=== PATIENT | female | born 1975 | race Caucasian/White ===

== ENCOUNTER 2022-11-09 15:45 | Outpatient (RCR) | payer BC, SELFPAY ==
--- NOTE | 2022-10-06 09:08 | PTOPEVAL1 ---
Assessment and note entered by Lucrecia Montejo, PT, DPT Evaluation Information Assessment Status Evaluation Diagnosis shoulder and neck pain Onset chronic Subjective Information Pt states she has had neck, upper back, and shoulder pain for almost 10 years. She states she has pinched a nerve in her neck because of it. She states she feels like it is getting worse in the last few months. 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 Pt reports greater than 3 headache days a week. Reported Pain Level Pain Score 6: Self Report Assessment PT Clinical Summary Caty presents to therapy today for her initial evaluation with a diagnosis of strain of muscle in the scapular region. Today she demonstrates limitations in her active cervical motion in all directions, with lateral flexion being the most limited. She demonstrates active shoulder flexion and abduction to ~115 deg ea, bilaterally. She has notable decreased thoracic and cervical joint mobility as well as increased tissue density throughout her scapular/cervical regions L>R. She has poor, rounded posture with decreased ability to find spinal neutral. Skilled physical therapy services are indicated to improve shoulder and cervical ROM and strength, for pain management, to educate on body mechanics and work place set up, to minimize limitations, and to promote unlimited functional mobility. Plan of Care Interventions Electrical Stimulation,Hot Pack/Cold Pack,Manual Therapy,Neuro Re-education,Patient/Caregiver Educati,Therapeutic Activities,Therapeutic Exercise PT Services Indicated Yes Treatment Frequency and 2x/wk for 5 wks Duration These treatments will address the objective and functional deficits as defined above. The patient will be advanced safely and appropriately in order for the patient to progress towards his/her prior level of function. Additional exercises will be introduced and as well as a comprehensive home exercise program upon discharge, if needed, ?to ensure carryover of functional gains achieved in the clinic. This treatment plan has been reviewed and agreement upon by the patient.
--- NOTE | 2022-11-09 16:32 | PTOPPROG ---
Assessment and note entered by Lucrecia Montejo, PT, DPT Evaluation Information Assessment Status Progress Diagnosis shoulder and neck pain Onset chronic Subjective Information Pt states overall she is doing better. She states her shoulder still feels tight. She states she thinks if she keeps up with the exercises she will get there. She states her sleeping is still broken and is difficult d/t numbness. She states she was able to work more hours this week and last week. She states she still has tightness that moves from her shoulder up to the back of her next but this has decreased in intensity and frequency . She states her pain is a little bit higher this week and she has been working longer and decreased her exercises d/t a family emergancy. Assessment PT Clinical Summary Caty presents to therapy today for her progress report following 7 visits of skilled therapy to treat her neck and shoulder pain. Today she demonstrates improved active shoulder ROM in both flexion and abduction, from 115 deg, to 150 deg and 130 deg respectively. She demonstrates good shoulder strength and improving cervical ROM. She reports a decrease in headaches and sharp pains in her neck. She is progressing well towards her therapy goals. It was decided that she continue her HEP and follow up in one month if needed. If she does not call to come back in, in a month she will be discharged at that time. Plan of Care Interventions Electrical Stimulation,Hot Pack/Cold Pack,Manual Therapy,Neuro Re-education,Patient/Caregiver Educati,Therapeutic Activities,Therapeutic Exercise PT Services Indicated No Treatment Frequency and follow up in one month if needed Duration These treatments will address the objective and functional deficits as defined above. The patient will be advanced safely and appropriately in order for the patient to progress towards his/her prior level of function. Additional exercises will be introduced and as well as a comprehensive home exercise program upon discharge, if needed, ?to ensure carryover of functional gains achieved in the clinic. This treatment plan has been reviewed and agreement upon by the patient.
--- NOTE | 2022-12-12 12:45 | PTOPDC ---
Assessment and note entered by Lucrecia Montejo, PT, DPT Evaluation Information Assessment Status Discharge - Pt Not Present Diagnosis shoulder and neck pain Onset chronic Subjective Information Called and spoke with patient, she states she is doing well with her HEP and no longer needs to continue therapy. Assessment PT Clinical Summary Caty completed 8 visits of skilled therapy from 10/06/22 to 11/09/22 and has been performing her HEP on her own since. She will be discharged at this time. If she needs additional therapy at a later time she will need a new order.
== END 2022-12-12 13:14 | disposition home or self-care (01) ==
LOC: ANHGOSHPT 15:45
PROVIDERS: PCP Family Medicine; Visit Provider Family Medicine
DX: S29.012D Strain of muscle and tendon of back wall of thorax, subsequent encounter (principal)
CPT/HCPCS: 97110; 97112; 97140; 97161

== ENCOUNTER 2023-04-02 05:06 | Emergency (ER) | payer BC, SELFPAY ==
[2023-04-02 05:13] VITALS: BP 119/77; PULSE 99; RESP 18; TEMP 36.8; O2SAT 98
--- NOTE | 2023-04-02 05:26 | ED.GENADULT ---
HPI - General Adult General Chief complaint: Unspecified Stated complaint: woke up with a bat on my pillow Time Seen by Provider: 04/02/23 05:26 History of Present Illness HPI narrative: Patient presents here after she found a bat on her pillow, it was a baby that, she states that occasionally her cat will bring her things and she thinks that this is what happened. She denies any wounds anywhere. Related Data Home Medications Medication Instructions Recorded Confirmed loratadine 10 mg tablet (Claritin) 10 mg PO DAILY PRN Allergy Symptoms 10/25/22 10/25/22 Allergies Allergy/AdvReac Type Severity Reaction Status Date / Time 1. ASA 2. all NSAIDS Allergy Unknown Unknown Uncoded 10/25/22 13:33 Review of Systems Review of Systems: CONST: No fever. HEENT: No sore throat C/V: No chest pain RESP: No cough GI: No abdominal pain : No dysuria. M/S: No joint pain. SKIN: No rash. NEURO: [No headache or focal numbness or weakness] PSYCH: Anxious PMFSH Past Medical History Medical History Acute sialoadenitis Anxiety Dermographism Drug-induced anaphylaxis NSAID Vocal cord dysfunction Family History Family History Mother Family history of mental disorder Depression Sibling Family history of mental disorder Depression Family history of migraine headaches Asthma Father Hypertension Family history of cardiovascular disease Family history of arthritis Grandparent Family history of Alzheimer's disease Malignant neoplasm of prostate Family history of malignant neoplasm of urinary bladder Social History Social History Smoking packs per day: 1 Smoking cigarettes per day: 20.0 Years smoked: 8 Smoking pack-years: 8.00 Smoking status: Former smoker Tobacco type: cigarettes Second hand tobacco smoke exposure: No Smoking end date: 10/16/99 Alcohol intake: current Drinks per week: 1 Alcohol use details: Occasionally Substance use type: does not use Lack of Transportation: No Lack of Food: Never True Current Housing: I Have Housing Concerned About Future Housing: No Difficulty Paying Gas/Electric Bills: No Difficulty Paying for Meds: No Currently Unemployed: No Education: Bachelor's Degree Difficulty w/ Childcare or Family Care: No Living arrangements: with family Occupation/Education: occupation Gender identity (if verbalized by the patient): Female Spiritual care concerns: No Exam Narrative: EXAMINATION OF ORGAN SYSTEMS/BODY AREAS: Constitutional: Vital signs per nursing GENERAL:[No acute distress, non-toxic appearing.] HEAD: Normal with no signs of head trauma. EYES: EOMI, conjunctiva normal ENT: Hearing grossly intact LUNGS: Nonlabored breathing. HEART: [Regular rate and rhythm] EXT: Normal range of motion SKIN: [No rashes or lesions.] NEURO: [Alert and oriented x 3. No gross focal sensory or strength deficits.] PSYCH: Normal affect Course Vital Signs Vital signs: Vital Signs Temperature 98.2 F 04/02/23 05:13 Pulse Rate 99 04/02/23 05:13 Respiratory Rate 18 04/02/23 05:13 Blood Pressure 119/77 04/02/23 05:13 Pulse Oximetry 98 04/02/23 05:13 Oxygen Delivery Room Air 04/02/23 05:13 Temperature 98.2 F 04/02/23 05:13 Pulse Rate 99 04/02/23 05:13 Respiratory Rate 18 04/02/23 05:13 Blood Pressure 119/77 04/02/23 05:13 Pulse Oximetry 98 04/02/23 05:13 Oxygen Delivery Room Air 04/02/23 05:13 Medical Decision Making MDM Narrative Medical decision making narrative: 48-year-old female presents here after she found to be back on her pillow that she thinks her cat dragged in, she is well-appearing here, no signs of injury anywhere and she has no complaints, she did bring the baby back with her. Animal control is contacted and will arri
--- NOTE | 2023-04-02 05:37 | PC.NURSE ---
This Rn attempted to call the [facility] animal control. There was no call but a voicemail stating they open at 0930. This RN then called [facility] office to find out plan of care for bat brought in by patient and for patient per EDP. [facility]'s office told this RN they would call back with the on-call animal control number.
--- NOTE | 2023-04-02 05:46 | PC.NURSE ---
This RN was called back by Marcelo from Animal Control. Marcelo stated he resides in [place] and would make his way up to the hospital to evaluate the bat and update patient on plan of care.
--- NOTE | 2023-04-02 06:23 | PC.NURSE ---
Marcelo from Animal control arrived and stated that he would be able to get the bat tested on Monday and would be able to update the patient about rabies on Monday. Marcelo collected patient information. Marcelo stated that starting the rabies protocol today was not needed but she should follow up with health department for guidance and to take her cat to the vet to get an updated rabies shot. Pt verbalized understanding and had no further questions at this time. Pt left contact information for Marcelo.
== END 2023-04-02 06:37 | disposition home or self-care (01) ==
PROVIDERS: Emergency Provider Emergency Medicine; PCP Family Medicine
DX: Z20.3 Contact with and (suspected) exposure to rabies (principal)
CPT/HCPCS: 99281

== ENCOUNTER 2025-03-06 07:51 | Outpatient (CLI) | payer BC, SELFPAY ==
--- NOTE | ~2025-03-06 | MM_ITS ---
EXAMINATION: MM screening [place] BI w [facility] HISTORY: Screening TECHNIQUE: Craniocaudal and mediolateral oblique 3-D tomosynthesis images were obtained and synthetic 2-D images were generated. CAD analysis was submitted and interpreted. COMPARISON: No prior mammogram is available for comparison at this institution. BREAST PARENCHYMAL COMPOSITION: Not dense: There are scattered areas of fibroglandular density. FINDINGS: There is no evidence of suspicious mass, calcification, or architectural distortion to sugg est malignancy in either breast. There has been no suspicious interval change. IMPRESSION: 1. No mammographic evidence of malignancy. 2. Recommend routine screening mammography in one year. BI-RADS Category 1: Negative Reviewed, dictated and finalized at location []
--- OUTSIDE RECORDS SUMMARY | 2025-03-06 07:56 | XMS_ITS | Clinical Summary ---
Author Organization [facility] Address [address] [place] [address] Care Team Providers Care Photographer Assistant Name Role Phone Unavailable Primary Care Provider Unavailabl e Source Comments [facility],non-owned Affiliates and Associated Physician Practices is amultiple site organization consisting of ambulatory clinics and hospital sitesin [place], [place], [place] and [place]. This disclosure is being madepursuant to the Care Everywhere program and may not contain all information available regarding this patient. Last updated 18.[facility] [employer] Allergies Active Allergy Reactions Criticality Noted Date Comments Erythromycin 10/19/2016 vomiting Nsaids Anaphylaxis High 10/19/2016 Medications * Be aware that medications may not be up to date on this document. Alwaysverify current medications with the patient. benzonatate (TESSALON) 200 MG capsuleIndicati ons:Cough Take 1 Cap by mouth 3 times daily as needed for Cough 30 Cap 7 Active albuterol HFA (PROAIR HFA) 108 (90 BASE) MCG/ACT inhalerIndicati ons:Cough Inhale 2 Puffs by mouth every 4 hours as needed for Shortness of Breath, Wheezing or Cough 1 Inhaler 7 Active Social History Tobacco Use Types Packs/Day Years Used Date Smoking Tobacco: Never Assessed Comments Unknown Sex and Gender Information Value Date Recorded Sex Assigned at Not on file Legal Sex Female 10:04 AM [employer] Gender Identity Not on file Sexual Orientation Not on file Last Filed Vital Signs Vital Sign Reading Time Taken Comments Blood Pressure 110/62 10/19/2016 10:53 AM [employer] Pulse 114 10/19/2016 10:53 AM [employer] Temperature 36.7 C (98 F) 10/19/2016 10:53 AM [employer] Respiratory Rate 18 10/19/2016 10:53 AM [employer]OT Oxygen Saturation - - Inhaled Oxygen Concentration - - Weight 68 kg (150 lb) 10/19/2016 10:53 AM [employer] Height 152.4 cm (5') 10/19/2016 10:53 AM [employer] Body Mass Index 29.29 10/19/2016 10:53 AM [employer] Plan of Treatment Health Maintenance Due Date Last Done Comments COLOGUARD (AGES 45-75) - COL ON CA SCREENING 1977 COLON MONITORING 1977 COLONOSCOPY - COLON CA SCREENING 1977 CT COLONOGRAPHY - COLON CA SCREENING 1977 Colorectal Cancer Screening 1977 FIT - COLON CA SCREENING 1977 FLEX SIG - COLON CA SCREENING 1977 LIPID TESTING 1977 MAMMOGRAM 1977 HIV SCREENING 02/03/1992 HEPATITIS C SCREENING 01/29/1995 DTAP/TDAP/TD VACCINES (1 - Tdap) 02/03/1996 HEPATITIS B VACCINE (1 of 3 - 19+ 3-dose series) 02/03/1996 COVID-19 VACCINE ( - 2023-2 5 season) 2024 DEPRESSION SCREENING 10/16/2024 INFLUENZA VACCINE (Season Ended) 2025 ZOSTER VACCINE (1 of 2) 2027 HIB VACCINE Aged Out No longer eligi ble based on patient's age to complete this topic HPV VACCINE Aged Out No longer eligi ble based on patient's age to complete this topic MENINGOCOCCAL (Group B) VACC INE SHARED DECISION-MAKING Aged Out No longer eligibl e based on patient's age to complete this topic MENINGOCOCCAL GROUPS A/C/Y/W VACCINE Aged Out No longer eligible b ased on patient's age to complete this topic PNEUMOCOCCAL VACCINE Aged Out No long er eligible based on patient's age to complete this topic Insurance ANTHEM
== END 2025-03-06 07:52 | disposition home or self-care (01) ==
LOC: ANHIMG 07:54
PROVIDERS: PCP Family Medicine; Visit Provider Family Medicine
DX: Z12.31 Encounter for screening mammogram for malignant neoplasm of breast (principal)
CPT/HCPCS: 77063; 77067

== ENCOUNTER 2025-07-19 12:44 | Emergency (ER) | payer BC, SELFPAY ==
--- NOTE | ~2025-07-19 | XR_ITS ---
XR cervical spine 4-5V Indication: left sided neck pain- injury Comparison: None Findings: The vertebral heights are intact. No fracture or subluxation. The disc heights are intact. Soft tissues unremarkable Impression: No acute abnormality. Reviewed, dictated and finalized at location P. Impression: No acute abnormality.
--- NOTE | 2025-07-19 12:47 | ED.NECK ---
HPI - Neck Pain/Injury General Chief Complaint: Neck Pain/Injury Stated Complaint: NECK PAIN Time Seen by Provider: 07/19/25 12:46 Source: patient Mode of arrival: ambulatory Limitations: no limitations History of Present Illness HPI Narrative: Caty is a 50-year-old female patient presenting to the clinic today with complaints of headache and left-sided neck pain x1 day. She reports she tip out of the chair yesterday and hit the top of her head on a concrete table. She denies any loss of consciousness. Has been taking Tylenol for her pain. Did not initially have neck pain but woke up this morning with left-sided neck pain that radiates into her shoulder/trapezius musculature. Has limited range of motion of the neck due to the pain. Rates her pain currently a 10/10 with movement of her neck. States the headache is dull to the top of her head. Denies any dizziness, visual changes, weakness, confusion, or difficulty walking. Related Data Home Medications ?Medication ?Instructions ?Recorded ?Confirmed ?Last Taken ?Type loratadine 10 mg tablet (Claritin) 10 mg PO DAILY PRN Allergy Symptoms 10/25/22 01/22/25 Unknown History Allergies Allergy/AdvReac Type Severity Reaction Status Date / Time aspirin Allergy Severe Anaphylaxis Verified 07/19/25 13:00 NSAIDS (Non-Steroidal Allergy Severe Anaphylaxis Verified 07/19/25 13:00 Anti-Inflamma 1. ASA 2. all NSAIDS Allergy Unknown Unknown Uncoded 01/22/25 11:00 Review of Systems Review of Systems: Pertinent positives per HPI. Patient denies any fever, chills, rash, visual changes, dizziness, cough, runny nose, sore throat, shortness of breath, chest pain, palpitations, nausea, vomiting, diarrhea, constipation, abdominal pain, or any urinary issues. [facility] Past Medical History Medical History Vocal cord dysfunction Dermographism Anxiety Acute sialoadenitis Family History Family History Mother Family history of mental disorder Depression Sibling Family history of mental disorder Depression Family history of migraine headaches Asthma Father Hypertension Family history of cardiovascular disease Family history of arthritis Grandparent Family history of Alzheimer's disease Malignant neoplasm of prostate Family history of malignant neoplasm of urinary bladder Social History Social History Smoking packs per day: 1 Smoking cigarettes per day: 20.0 Years smoked: 8 Smoking pack-years: 8.00 Smoking status: Former smoker Tobacco type: cigarettes Second hand tobacco smoke exposure: No Smoking end date: 10/16/99 Alcohol intake: current Alcohol use details: Occasionally Substance use: never Substance use type: does not use Do You Feel Safe in your Home?: Yes Lack of Transportation: No Lack of Food: Never True Current Housing: I Have Housing Concerned About Future Housing: No Difficulty Paying Gas/Electric Bills: No Difficulty Paying for Meds: No Currently Unemployed: No Education: Bachelor's Degree Difficulty w/ Childcare or Family Care: No Living arrangements: with family Occupation/Education: occupation Gender identity (if verbalized by the patient): Female Spiritual care concerns: No Comments At the time of my signature, I reviewed and agree with the nursing past medical, surgical, social, and family history. There is no relevant family history pertinent to the patient complaint. Exam Narrative: General: Well-developed, well nourished, in no apparent distress Head: Normocephalic, atraumatic, tenderness to palpation over the top of the scalp Eyes: Pupils equally round and reactive to light bilaterally, EOM intact, sclera and conjunctive clear, no discharge, lids normal Ears: TMs intact and clear, ear canals clear, no drainage, grossly hearing normal. Nose: Nares patent, no discharge, no inflammation, no sinus tenderness. Mouth: Oropharynx without lesions or masses, good dentition, MMM. Tongue midline, even rise and fall of uvula Neck: Supple, trachea midline, no enlargement of anterior or posterior cervical nodes, no thyroid masses or goiter palpable. Cardio: Regular rate and rhythm, s1 and s2 normal, no murmur appreciated. Resp: Clear to auscultation bilaterally anteriorly and posteriorly, no rhonchi, rales, wheezing or rubs Musculoskeletal: No deformity, posterior lateral cervical tender to palpation as well as over the left trapezius musculature, limited range of motion when turning head side to side against resistance and hyper extending and flexing the neck due to pain, muscle strength strong and equal, peripheral pulse strong, no edema, no cyanosis, normal gait and station Neuro: Alert and oriented x4 with normal speech, no focal deficits, cranial nerves I through XII intact, muscle strength 5 out of 5, sensation intact bilaterally, negative Romberg test Course Course Emergency Course: Portions of this record may have been created with voice recognition software. Level of Care: Express Care Visit Vital Signs Vital signs: Vital Signs Temperature 36.5 C 07/19/25 13:00 Pulse Rate 118 H 07/19/25 13:00 Respiratory Rate 16 07/19/25 13:00 Blood Pressure 140/92 H 07/19/25 13:00 Pulse Oximetry 100 07/19/25 13:00 Temperature 36.5 C 07/19/25 13:00 Pulse Rate 118 H 07/19/25 13:00 Respiratory Rate 16 07/19/25 13:00 Blood Pressure 140/92 H 07/19/25 13:00 Pulse Oximetry 100 07/19/25 13:00 Vital signs reviewed MDM - Neck Pain/Injury MDM Narrative Medical decision making narrative: At the time of visit patient is resting comfortably on the exam table. Patient appears to be nontoxic. Complaints of headache and left-sided neck pain x1 day. She reports she tip out of the chair yesterday and hit the top of her head on a concrete table. She denies any loss of consciousness. Has been taking Tylenol for her pain. Did not initially have neck pain but woke up this morning with left-sided neck pain that radiates into her shoulder/trapezius musculature. Has limited range of motion of the neck due to the pain. Rates her pain currently a 10/10 with movement of her neck. States the headache is dull to the top of her head. Denies any dizziness, visual changes, weakness, confusion, or difficulty walking. On exam patient has normal neuro exam, posterior lateral cervical tender to palpation as well as over the left trapezius musculature, limited range of motion when turning head side to side against resistance and hyper extending and flexing the neck due to pain. X-ray of the cervical spine was ordered Diagnostics: X-ray was negative for any sign of fracture or malalignment Plan: I suspect patient has close head injury, head contusion, posterior lateral cervical muscle strain. Prescription for Medrol Dosepak and Flexeril was sent to the pharmacy. Patient has anaphylactic allergy to NSAIDs but is able to take steroids. Supportive measures were discussed with the patient and they voiced understanding discharge instructions and agrees to treatment plan. Return precautions reviewed Differential Diagnosis Differential diagnosis: Likely disc disorder of cervical region, whiplash injury to neck, closed subluxation of cervical spine, fracture of cervical spine without lesion of spinal cord, cervical radiculopathy, vertebral artery dissection, torticollis, cervical spondylosis, strain of neck muscle and other (Closed head injury, contusion) Discharge Plan Discharge Clinical Impression: Posterolateral cervical muscle strain Qualifiers: Encounter type: initial encounter Qualified Code(s): S16.1XXA - Strain of muscle, fascia and tendon at neck level, initial encounter Closed head injury Qualifiers: Encounter type: initial encounter Qualified Code(s): S09.90XA - Unspecified injury of head, initial encounter Contusion of head Qualifiers: Encounter type: initial encounter Contusion of head detail: scalp Qualified Code(s): S00.03XA - Contusion of scalp, initial encounter Patient Disposition: Home Condition: Stable Instructions: Antibiotic Form, Cervical Strain (ED), Head Injury (ED), Contusion in Adults (ED) Additional Instructions: X-ray of the cervical spine is negative for any sign of fracture or malalignment. Tylenol as needed for headache May take Medrol Dosepak and cyclobenzaprine Be mindful of sedation precautions given to you if taking a muscle relaxer. May use heat or ice to the affected area Consider massage or chiropractor adjustment if this was discussed with provider May use blue emu, lidocaine patches, or asper cream to affected area- do not apply heat or ice directly over cream- can cause burn. Complete appropriate neck stretching exercises Increase fluids and stay well hydrated. Watch for red flag symptoms such as confusion, lethargy, nausea/vomiting, worsening of headache, visual changes, increase in dizziness, or any stroke-like symptoms. If these symptoms develop go to the Emergency Room immediately. Reduce stimuli- lights, computers, videogames, smart phones, tv, and noise over the next 2 days. Increase stimuli gradually. If headache worsens with stimuli reduce stimuli to tolerable level. Follow-up with your PCP in 3-5 days if symptoms persist or go to the emergency room if symptoms worsen Patient Language: Korean Prescriptions: New methylprednisolone [Medrol (Calin)] 4 mg tablets,dose pack See Rx Instructions PO .COMPLEX Qty: 21 0RF Rx Instructions: orally per package directions cyclobenzaprine 10 mg tablet 10 mg PO Q8H PRN (Reason: muscle spasm) 7 Days Qty: 21 0RF No Action montelukast 10 mg tablet 10 mg PO QHS Qty: 90 1RF epinephrine [EpiPen 2-Calin] 0.3 mg/0.3 mL auto-injector 0.3 mg IM ONCE Qty: 2 1RF Rx Instructions: as a single dose; may repeat once alprazolam 0.25 mg tablet 0.25 mg PO DAILY PRN (Reason: anxiety) Qty: 30 1RF loratadine [Claritin] 10 mg Tablet 10 mg PO DAILY PRN (Reason: Allergy Symptoms) budesonide-formoterol [Symbicort] 160-4.5 mcg/actuation HFA aerosol inhaler 2 puff inhalation Q12H Qty: 10.2 3RF Rx Instructions: rinse mouth after use omeprazole 20 mg capsule,delayed release(DR/EC) See Rx Instructions .ROUTE .COMPLEX Qty: 90 0RF Dose Instruction: TAKE 1 CAPSULE BY MOUTH DAILY Rx Instructions: TAKE 1 CAPSULE BY MOUTH DAILY albuterol sulfate 90 mcg/actuation HFA aerosol inhaler See Rx Instructions .ROUTE .COMPLEX Qty: 17 1RF Dose Instruction: INHALE 1 PUFF BY MOUTH EVERY 4 HOURS NEEDED FOR SHORTNESS OF BREATH OR WHEEZING Rx Instructions: INHALE 1 PUFF BY MOUTH EVERY 4 HOURS NEEDED FOR SHORTNESS OF BREATH OR WHEEZING Follow-up/Referrals: Harleen Morrison MD [Primary Care Provider, Family Practice] Time of Disposition: 14:14 Quality NIHSS Nursing Documentation ED NIHSS nursing documentation: reviewed/agree
[2025-07-19 13:00] VITALS: BP 140/92; PULSE 118; RESP 16; TEMP 36.5; O2SAT 100
== END 2025-07-19 14:22 | disposition home or self-care (01) ==
PROVIDERS: Emergency Provider Nurse Practitioner Family; PCP Family Medicine
DX: S16.1XXA Strain of muscle, fascia and tendon at neck level, initial encounter (principal); S09.90XA Unspecified injury of head, initial encounter; S00.03XA Contusion of scalp, initial encounter; W07.XXXA Fall from chair, initial encounter; F41.9 Anxiety disorder, unspecified; Z87.891 Personal history of nicotine dependence
CPT/HCPCS: 72050; 99213; G0463